=== PATIENT | female | born 1940 | race Caucasian/White ===

== ENCOUNTER 2017-02-13 20:17 | Inpatient (IN) | payer MEDICARE ==
[~2017-02-13] VITALS: Ht 170.1 cm; Wt 70.3 kg
--- NOTE | ~2017-02-13 | PR ---
[place], [place] [id number] #: [id number] ROOM: 315 DOCTOR: DEYA FELIX BIRTHDATE: [birth year] DOS: 02/19/2017 CHIEF COMPLAINT: "Good morning." SUMMARY OF THE VISIT: She was in the dining room eating breakfast. She was ____, alert, pleasant, smiling. She had no issues overnight. There is no amy or hypomania. She is not having any overt audio or visual hallucinations. She did not require any p.r.n. medication overnight. PLAN: We will continue to maximize her dementia meds, increase her Exelon patch today to 13.3. She did have a chest x-ray done yesterday because she has a cough and that chest x-ray was negative. We will continue to engage her in individual and pearl milieu and discharge her to the least restrictive environment when she is psychiatrically stable. Deya Felix NP CM:JADA [phone] DEYA FELIX 02/19/172000 interface
--- NOTE | ~2017-02-13 | DS ---
[place], [place] DISCHARGE SUMMARY NAME: NE VUONG UNIT #: [id number] ROOM: 315 DOCTOR: DEYA FELIX BIRTHDATE: [birth year] DOS: 02/21/2017 CHIEF COMPLAINT: The patient smiled and held my hand. HISTORY OF PRESENT ILLNESS: She is a 76-year-old female who cane in to the Emergency Room from her assisted living facility. At the assisted living facility, she had become resistant to care, being staring off in space for long periods of time and talking to herself. She was physically and verbally threatening to others and had extreme staff or fearful for her safety and safety of other resident in the facility. She had also not been sleeping well and had had decline in her ADL function at the assisted living. She does have a long standing history of bipolar disorder. PAST MEDICAL HISTORY: Remarkable for hypothyroidism and Alzheimer's dementia as well as bipolar disorder. SUMMARY OF HOSPITAL COURSE: We started out by ruling up any lab work to rule out any kind of metabolic process that might be going on with her. She was started on breathing treatment and treated from a respiratory standpoint by medical. We have maximized both her Exelon and her Namenda today during this stay. She was also started on and Remeron, which helped to stabilize her behaviors. She has had no physically aggressive or threatening behavior since she has been here on the unit. MENTAL STATUS AT DISCHARGE: She is alert, still confused, pretty much non-verbal. She does talk, speak one or two words but she smiles, nods or shakes her head yes or no in response to questions. Mood and effect are appropriate. DIAGNOSES: Bipolar disorder type 1, maniac. DISPOSITION: She will be discharged back to her facility. All of her prescription have been printed and will be sent with her. She is discharged in a psychiatrically stable condition. [place], [place] DISCHARGE SUMMARY NAME: NE VUONG UNIT #: [id number] ROOM: 315 DOCTOR: DEYA FELIX BIRTHDATE: [birth year] Deya Felix NP CM:JEREMY 28 DEYA FELIX 02/21/171727 interface
--- NOTE | ~2017-02-13 | PR ---
[place], [place] PROGRESS NOTE NAME: NE VUONG UNIT #: [id number] ROOM: 315 DOCTOR: DEYA FELIX BIRTHDATE: [birth year] DOS: 02/16/2017 CHIEF COMPLAINT: "I feel great." SUMMARY OF THE VISIT: The patient is in the dining room seated in a Kylee chair. She continues to be confused to place and time, oriented to herself only. She reports that she had good sleep. She has had just a few behavioral issues while she has been here as far as resisting care and attempting to stand unassisted. Her TSH was 1.29. The vitamin B12 and vitamin D levels are still pending to rule out any kind of metabolic issue. PLAN: We will await the lab results before making medication adjustments most likely tomorrow. We will continue to try to engage her in individual and pearl milieu with the plan to discharge her back to the least restrictive environment when she is psychiatrically stable, likely early next week. Deya Felix NP CM:PNTRANS 1 20 DEYA FELIX 02/16/172220 interface
--- NOTE | ~2017-02-13 | PR ---
[place], [place] PROGRESS NOTE NAME: NE VUONG UNIT #: [id number] ROOM: 315 DOCTOR: DEYA FELIX BIRTHDATE: [birth year] DOS: 02/20/2017 CHIEF COMPLAINT: "The resident smiled and nodded." SUMMARY OF THE VISIT: The patient was up in a Kylee chair. She was eating her breakfast. She was smiling, pleasant, affect was bright, nodded mostly in response to questions. She has had no behaviors overnight. She has had no amy. No hypomania. She has had no overt audio or visual hallucinations. PLAN: We plan to discharge her back to her [facility] tomorrow. In the meantime, we will continue to engage her in individual and pearl milieu and with the plan to discharge her to the least restrictive environment when she is psychiatrically stable. Deya Felix NP CM:JADA [phone] DEYA FELIX 02/20/17 1339 interface
--- NOTE | ~2017-02-13 | PR ---
[place], [place] PROGRESS NOTE NAME: NE VUONG UNIT #: [id number] ROOM: 315 DOCTOR: DEYA FELIX BIRTHDATE: [birth year] DOS: 02/18/2017 CHIEF COMPLAINT: "The resident smiled and held my hand." SUMMARY OF THE VISIT: The patient was eating her breakfast in the dining room. Her mood is bright. She is smiling. Affect is appropriate. She is doing very well. She grabbed, held and kissed my hand whenever I came up to talk to her, but in the meantime she had been eating her breakfast. Staff reports that she slept all night. She does have some cough and some lower leg edema and those are going to be addressed by medical who have already been notified. PLAN: We will start her on Namenda just to supplement her dementia meds and get her to her high functional level that she can maintain. We will continue to engage her in individual and pearl milieu and discharge her to the least restrictive environment when she is psychiatrically stable, most likely towards the end of this coming week. Deya Felix NP CM:JADA [phone] DEYA FELIX 02/18/17 1325 interface
--- NOTE | ~2017-02-13 | PR ---
[place], [place] [facility]GRESS NOTE [id number] UN[facility] #: [id number] ROOM: 315 DOCTOR: DEYA FELIX BIRTHDATE: [birth year] DOS: 02/17/2017 CHIEF COMPLAINT: The patient smiled and said hello. SUMMARY OF THE VISIT: She was seen sitting in a Kylee chair in the ____ room. She did answer questions today. She does make eye contact. She is alert. She is definitely frankly confused. Baseline labs were done yesterday. Her vitamin B12 and TSH are all within normal limits. Currently, she is getting Vraylar 3 mg at bedtime, Remeron 15 mg at bedtime, Exelon 4.6 mg. PLAN: We will increase her Exelon and perhaps supplement that with Namenda in order to slow down her cognitive decline, maintain her ADL function and treat her dementia. We will continue to try to engage her in individual and pearl milieu and discharge her to the least restrictive environment when she is psychiatrically stable. Deya Felix NP CM:PNTRANS [phone] DEYA FELIX 02/17/17 1305 interface
--- NOTE | ~2017-02-13 | WRIGHTHP ---
[place], [place] PATIENT HISTORY AND PHYSICAL EXAM NAME: NE VUONG UNIT #: [id number] ROOM: 315 DOCTOR: DELANO DEGROOT MD BIRTHDATE: [birth year] DOS: 02/13/2017 CHIEF COMPLAINT: "Oh, I am glad to meet you. You are like prices right." HISTORY OF PRESENT ILLNESS: This is a 76-year-old white female who presented to the Emergency Room at [facility] [place] from an assisted living facility. Apparently, the patient has a lengthy history of bipolar disorder and has had a significant alteration in mental status, leading to her ultimate admission. While at the assisted living facility, the patient has become very uncooperative, has been staring off into space for long periods of time and has been talking to herself. She has been verbally and physically threatening to others and has exhibited extreme mood lability to the point where the staff there was fearful of her safety and the safety of other residents. Given the fact that she was also not sleeping well and had a significant decline in ADLs, it was felt that inpatient stabilization was warranted. PAST MEDICAL HISTORY: Remarkable for a history of hypothyroidism as well as Alzheimer dementia. MENTAL STATUS: The patient is alert and oriented to person, possibly place, but not to time. Mood this morning seem to be still somewhat labile. She jumped from topic to topic and was not always able to answer questions appropriately. Most of her responses were short and simple and inappropriate. She did have marked processing difficulty and short-term memory was exceptionally poor. DIAGNOSIS: Bipolar, type 1, manic and Alzheimer dementia. PLAN: I have started her on Vraylar to act as a mood stabilizer as well as starting her on Remeron for the depressive component. Given the fact that there is a significant memory component here, I will start her on Exelon and may augment this with Namenda at a later date. We will engage her in individual and pearl milieu activity, returning back to assisted living or to the least restrictive environment when she is medically stable condition. [place], [place] PATIENT HISTORY AND PHYSICAL EXAM NAME: NE VUONG UNIT #: [id number] ROOM: 315 DOCTOR: DELANO DEGROOT MD BIRTHDATE: [birth year] DELANO DEGROOT MD CM:DELPHINE:PATIENT HISTORY AND PHYSICAL EXAMINATION 4 4 DELANO DEGROOT MD 02/14/17824 interface
--- NOTE | ~2017-02-13 | PR ---
[place], [place] PROGRESS NOTE [id number] UN[facility] #: [id number] ROOM: 315 DOCTOR: DEYA FELIX BIRTHDATE: [birth year] DOS: 02/15/2017 CHIEF COMPLAINT: This morning, "I have a hair appointment." SUMMARY OF THE VISIT: She was seen in the dining room where she was seated in a Kylee chair, making halfhearted attempts to get out of the chair. When questioned, she said that she came in yesterday and that prior to that, she has lived in [place] and gave me her street address. MENTAL STATUS EXAMINATION: She is oriented to herself, not oriented to place and time at this time. Her short-term memory has gaps, long-term memory is very intact. She reports that she slept well and said she did not have any drams. She is very pleasant and talkative. Mood is euthymic. Affect is appropriate. PLAN: We will get some baseline labs today just to make sure that there is no organic cause for her behaviors that caused her admission. We will continue to engage her in individual and pearl milieu and discharge her to the least restrictive environment as soon as she is psychiatrically stable. Deya Felix NP CM:JADA [phone] DEYA FELIX 02/15/172156 interface
[2017-02-13 21:50] VITALS: BP 127/84
[2017-02-14 02:19] VITALS: BP 127/84
[2017-02-14 08:00] VITALS: BP 105/61
[2017-02-14 19:40] VITALS: BP 125/47
[2017-02-14 19:48] VITALS: BP 115/62
[2017-02-15 07:56] VITALS: BP 154/102
[2017-02-15 08:01] VITALS: BP 108/64
[2017-02-15 20:05] VITALS: BP 123/45
[2017-02-16 08:06] VITALS: BP 131/67
[2017-02-16 08:41] LABS: VITAMIN D, 25-HYDROXY 31.1 ng/mL (30-100)
[2017-02-16 20:03] VITALS: BP 110/82
[2017-02-17 08:00] VITALS: BP 128/54
[2017-02-17 20:32] VITALS: BP 137/56
[2017-02-18 08:06] VITALS: BP 133/63
[2017-02-18 20:00] VITALS: BP 113/56
[2017-02-19 09:53] VITALS: BP 109/42
[2017-02-19 21:46] VITALS: BP 114/41
[2017-02-20 08:53] VITALS: BP 134/61
[2017-02-20 20:17] VITALS: BP 116/47
[2017-02-21] MEDS ORDERED: MIRTAZAPINE15 M2 PO (08:23)
[2017-02-21] MEDS ORDERED: NAMENDA-5 PO (08:23)
[2017-02-21] MEDS ORDERED: EXELON13.3 MG/21 T (08:23)
[2017-02-21] MEDS ORDERED: CARBIDOPA/LEVOD1 TA1 PO (08:23)
[2017-02-21] MEDS ORDERED: VRAYLAR3 MG PO (08:23)
[2017-02-21 08:31] VITALS: BP 145/60
== END 2017-02-21 15:30 | DRG 57 ==
LOC: 3N 20:17
PROVIDERS: Registered Nurse
DX: G30.9 Alzheimer's disease, unspecified (principal); F02.81 Dementia in other diseases classified elsewhere, unspecified severity, with behavioral disturbance; D64.9 Anemia, unspecified; E87.1 Hypo-osmolality and hyponatremia; F31.9 Bipolar disorder, unspecified; E03.9 Hypothyroidism, unspecified; R31.9 Hematuria, unspecified; G51.0 Bell's palsy; R06.2 Wheezing; Z88.8 Allergy status to other drugs, medicaments and biological substances; Z79.899 Other long term (current) drug therapy

== ENCOUNTER → 2017-02-13 | Emergency (ER) | payer MEDICARE ==
[~2017-02-13] VITALS: Ht 170.1 cm; Wt 70.3 kg
[~2017-02-13] MED LIST: ABILIFY15 MG PO; DUONEB 3 MG/3 ML3 M1 INH; FUROSEMIDE20 M1 PO; IRON325 M3 PO; K-TAB20 MEQ PO; LEVOTHYROXINE0.05 MG PO; MOBIC7.5 MG PO; OMEPRAZOLE20 M2 PO; REMERON15 M2 PO; ROPINIROLE HYDRO1 MG PO; SENNA-S TABLET1 EACH PO; SINEMET 25-1001 TA1 PO; TRAZODONE50 MG PO; TUMS ULTRA400 MG PO; ZOCOR10 MG PO
[2017-02-13 15:23] LABS: BASO # 0.1 10*3/uL (0.0-0.1); BASO % 0.7 % (0.0-1.0); EOS # 0.1 10*3/uL (0.0-0.4); EOS % 1.4 % (1.0-4.0); HEMATOCRIT 35.4 % (37.0-47.0); HEMOGLOBIN 11.4 g/dl (12.0-16.0); LYMPH # 1.5 10*3/uL (1.3-4.4); MEAN CELL VOLUME 87.2 fl (81.0-99.0); MEAN CORPUSCULAR HGB 28.1 pg (27.0-31.0); MEAN CORPUSCULAR HGB CONC 32.2 g/dl (33.0-37.0); MONO # 0.5 10*3/uL (0.1-1.0); MONO % 6.3 % (3.0-9.0); NEUT # 5.5 10*3/uL (2.3-7.9); NEUT % 72.3 % (47.0-73.0); PLATELET COUNT AUTOMATED 240 10*3/uL (130-400); RED BLOOD COUNT 4.06 10*6/uL (4.10-5.10); WHITE BLOOD COUNT 7.7 10*3/uL (4.8-10.8)
[2017-02-13 15:31] LABS: INTERNATIONAL NORM RATIO 0.9 (2.0-3.5)
[2017-02-13 15:38] LABS: ALBUMIN 3.6 gm/dl (3.1-4.5); ALKALINE PHOSPHATASE 103 U/L (45-117); BILIRUBIN, TOTAL 0.2 mg/dl (0.2-1.0); BUN 18 mg/dl (7-24); C-REACTIVE PROTEIN 0.76 MG/DL (0-0.3); CARBON DIOXIDE 31 mmol/L (21-32); CHLORIDE 95 mmol/L (98-107); CKMB 1.8 ng/ml (0.5-3.6); CPK 98 U/L (26-192); EST GLOM FILT AFRICAN AMERICAN > 60 ml/min; GLUCOSE 88 mg/dL (65-99); MAGNESIUM 2.5 mg/dL (1.5-2.1); POTASSIUM 4.4 mmol/L (3.5-5.1); SGOT/AST 18 IU/L (3-35); SGPT/ALT 18 U/L (12-78); SODIUM 133 mmol/L (136-145); TOTAL PROTEIN 7.6 gm/dL (6.4-8.2)
[2017-02-13 15:39] LABS: TROPONIN I < 0.015 ng/ml (<0.045)
[2017-02-13 16:17] LABS: BILIRUBIN NEGATIVE (NEGATIVE); BLOOD 1+ (NEGATIVE); CLARITY CLEAR (CLEAR); COLOR YELLOW (YELLOW); GLUCOSE NEGATIVE (NEGATIVE); KETONE NEGATIVE (NEGATIVE); LEUKO ESTERASE NEGATIVE (NEGATIVE); NITRITE NEGATIVE (NEGATIVE); PH 6.5 (5.0-9.0); PROTEIN NEGATIVE (NEGATIVE); SPECIFIC GRAVITY <= 1.005 (1.005-1.030); UROBILINOGEN 0.2 E.U./dl (0.2-1.0)
[2017-02-13 16:32] LABS: BACTERIA TRACE; URINE REFLEX COMMENT YES (NO)
[2017-02-13 16:33] LABS: WBC 0-2 wbc/hpf (0-5)
== END ==
LOC: ED 14:27
PROVIDERS: Emergency Medicine
DX: F31.9 Bipolar disorder, unspecified (principal); Z88.8 Allergy status to other drugs, medicaments and biological substances